=== PATIENT | female | born 1955 | race Caucasian/White ===

== ENCOUNTER 2022-08-27 11:13 | Outpatient (CLI) | payer MEDICARE, OTHER, SELFPAY ==
--- NOTE | 2022-08-27 11:22 | MM_ITS ---
WS: [id number] BILATERAL SCREENING DIGITAL TOMOSYNTHESIS MAMMOGRAM WITH CAD HISTORY: SCREENING COMPARISON: 04/19/2020 and 04/21/2019 Bilateral CC and MLO views with tomosynthesis and synthetic mammography submitted. Computer aided det ection analyzed. Breast composition: There are scattered areas of fibroglandular density. No suspicious masses, microc alcifications or architectural distortion. MM/[place] [id number] IMPRESSION: BI-RADS: 1-Negative FOLLOW UP: 1 Year Follow-up
== END 2022-08-27 11:14 | disposition home or self-care (01) ==
LOC: RAD 11:19
PROVIDERS: PCP Internal Medicine; Visit Provider Internal Medicine
DX: Z12.31 Encounter for screening mammogram for malignant neoplasm of breast (principal)
CPT/HCPCS: 77063; 77067

== ENCOUNTER → 2022-09-07 13:50 | Outpatient (BNVA) | payer MEDICARE, OTHER, SELFPAY | PROVIDERS: PCP Internal Medicine; Referring Provider Internal Medicine; Visit Provider Dermatology | DX: L85.8 Other specified epidermal thickening (principal) | CPT/HCPCS: 88305 ==

== ENCOUNTER → 2023-09-13 09:37 | Outpatient (BNVA) | payer MEDICARE, OTHER, SELFPAY | PROVIDERS: PCP Internal Medicine; Visit Provider Nurse Practitioner Family | DX: L90.0 Lichen sclerosus et atrophicus (principal); L81.4 Other melanin hyperpigmentation; L57.8 Other skin changes due to chronic exposure to nonionizing radiation; D22.5 Melanocytic nevi of trunk | CPT/HCPCS: 99214 ==

== ENCOUNTER 2024-07-27 11:19 | Outpatient (CLI) | payer MEDICARE, OTHER, SELFPAY ==
--- NOTE | 2024-07-27 11:21 | MM_ITS ---
WS: [id number] BILATERAL SCREENING DIGITAL TOMOSYNTHESIS MAMMOGRAM WITH CAD HISTORY: SCREENING COMPARISON: 08/27/2022, 04/19/2020 Bilateral CC and MLO views with tomosynthesis and synthetic mammography submitted. Computer aided det ection analyzed. Breast composition: The breasts are heterogeneously dense, which may obscure small masses. No suspici ous masses, microcalcifications or architectural distortion. Scattered fibroglandular asymmetries and a few calcifications are stable. MM/MM [facility] tomosynthesis [id number] IMPRESSION: BI-RADS: 2 - Benign FOLLOW UP: 1 Year Follow-up
== END 2024-07-27 11:20 | disposition home or self-care (01) ==
LOC: RAD 11:20
PROVIDERS: PCP Internal Medicine; Visit Provider Internal Medicine
DX: Z12.31 Encounter for screening mammogram for malignant neoplasm of breast (principal); R92.323 Mammographic fibroglandular density, bilateral breasts; N64.89 Other specified disorders of breast; R92.1 Mammographic calcification found on diagnostic imaging of breast
CPT/HCPCS: 77063; 77067

== ENCOUNTER → 2024-09-12 14:02 | Outpatient (BNVA) | payer MEDICARE, OTHER, SELFPAY | PROVIDERS: PCP Internal Medicine; Visit Provider Nurse Practitioner Family | DX: L90.0 Lichen sclerosus et atrophicus (principal); L23.9 Allergic contact dermatitis, unspecified cause; D22.5 Melanocytic nevi of trunk; L81.4 Other melanin hyperpigmentation; L57.8 Other skin changes due to chronic exposure to nonionizing radiation | CPT/HCPCS: 99214 ==

== ENCOUNTER 2024-11-09 14:15 | Outpatient (CLI) | payer MEDICARE, OTHER, SELFPAY ==
--- NOTE | 2024-11-09 14:17 | XR_ITS ---
WS: [id number] DEXA (DUAL ENERGY X-RAY ABSORPTIOMETRY) Bone mineral density was performed using a iPling machine. HISTORY: SCREENING FOR OSTEOPOROSIS COMPARISON: None available. Lumbar spine BMD (L1-L4): 0.964 g/cm2 T score: -1.8 Z score: -0.7 Total hip BMD: Left: 0.755 g/cm2. T score: -2.0 Z score: -0.9 Right: 0.812 g/cm2. T score: -1.6 Z score: -0.5 10 year probability of a major osteoporotic fracture is 15.5%. XR/XR DEXA axial skeleton* [id number] IMPRESSION: OSTEOPENIA based upon the WHO classification for females.
== END 2024-11-09 14:16 | disposition home or self-care (01) ==
PROVIDERS: PCP Internal Medicine; Visit Provider Internal Medicine
DX: M85.80 Other specified disorders of bone density and structure, unspecified site (principal)
CPT/HCPCS: 77080

== ENCOUNTER → 2024-12-07 09:14 | Outpatient (BNVA) | payer MEDICARE, OTHER, SELFPAY | PROVIDERS: PCP Internal Medicine; Visit Provider Internal Medicine Cardiovascular Disease | DX: R00.2 Palpitations (principal); I49.8 Other specified cardiac arrhythmias; I49.3 Ventricular premature depolarization; I49.1 Atrial premature depolarization; I47.10 Supraventricular tachycardia, unspecified; I44.1 Atrioventricular block, second degree | CPT/HCPCS: 93242 ==